=== PATIENT | male | born 1980 ===

== ENCOUNTER 2017-01-19 08:57 | Observation (INO) | payer MEDICAID ==
[~2017-01-19 08:57] MED LIST: DEXAMETHASONE 10 MG/ML VIAL IVP ONE; ceFAZolin 2 GM/DEXTROSE 100 ML IV ONE
[2017-01-19] MEDS ORDERED: LR 1,000 ML IV ONE (09:30)
[2017-01-19] MEDS ORDERED: fentaNYL 100 MCG/2 ML INJ ONE ×3 (10:02→12:48)
[2017-01-19] MEDS ORDERED: PROPOFOL 200 MG/20 ML VIAL ONE (10:02)
[2017-01-19] MEDS ORDERED: CEFAZOLIN 2 GM/DEXTROSE/100 ML BAG IV ONE (10:03)
--- NOTE | 2017-01-19 10:35 | PDHPUP ---
History & Physical Update H&P update statement: This history and physical update is based on an assessment of the patient which was completed after admission or registration (within 24 hours), but prior to the surgery/procedure. H&P update: H&P reviewed & patient examined, no change in patient's condition since H&P completed ([id number])
[2017-01-19] MEDS ORDERED: DEXAMETHASONE 10 MG/ML VIAL IVP ONE (10:45)
[2017-01-19] MEDS ORDERED: MIDAZOLAM 2 MG/2 ML VIAL IVP ONE (10:52)
--- NOTE | 2017-01-19 10:53 | PDANEPAE ---
ANE History of Present Illness Patient presents for Tonsillectomy ANE Past Medical History - Cardiovascular History Hx Hypertension: No Hx Arrhythmias: No Hx Chest Pain: No Hx Coronary Artery / Peripheral Vascular Disease: No Hx CHF / Valvular Disease: No Hx Palpitations: No - Pulmonary History Hx COPD: No Hx Asthma/Reactive Airway Disease: No Hx Recent Upper Respiratory Infection: No Hx Oxygen in Use at Home: No - Neurologic History Hx Cerebrovascular Accident: No Hx Seizures: No Hx Dementia: No - Endocrine History Hx Diabetes: No - Renal History Hx Renal Disorders: No - Liver History Hx Hepatic Disorders: No - Neurological & Psychiatric Hx Hx Neurological and Psychiatric Disorders: No - Cancer History Hx Cancer: No - Congenital Disorder History Hx Congenital Disorders: No - GI History Hx Gastrointestinal Disorders: No - Chronic Pain History Chronic Pain: No ANE Review of Systems - Exercise capacity Exercise capacity: >=4 METS METS (RN): 4 METS ANE Patient History - Allergies Allergies/Adverse Reactions: No Allergies Allergy (Verified 01/04/17 09:31) - Home Medications Home Medications: Antifungal Cream 01/14/17 [Last Taken 01/18/17 20:00] Azithromycin 01/14/17 [Last Taken 1 Week Ago] Fluconazole 01/14/17 [Last Taken Unknown] - NPO status NPO Since - Liquids (Date): 01/18/17 NPO Since - Liquids (Time): 00:00 NPO Since - Solids (Date): 01/18/17 NPO Since - Solids (Time): 00:00 - Smoking Hx Smoking Status: Former smoker - Family Anes Hx Family Hx Anesthesia Complications: none ANE Labs/Vital Signs - Vital Signs Blood Pressure: 133/86 Heart Rate: 52 Respiratory Rate: 12 O2 Sat (%): 94 Height: 180.34 cm Weight: 101.605 kg ANE Physical Exam - Airway Neck exam: FROM Mallampati Score: Class 1 Mouth exam: normal dental/mouth exam (Missing lower left incisor) - Pulmonary Pulmonary: no respiratory distress - Cardiovascular Cardiovascular: regular rate and rhythym - ASA Status ASA Status: II ANE Anesthesia Plan Anesthesia Plan: general endotracheal anesthesia
[2017-01-19] MEDS ORDERED: MIDAZOLAM 2 MG/2 ML VIAL ONE (10:54)
[2017-01-19] MEDS ORDERED: SUCCINYLCHOLINE CHLORIDE*ANESTHESIA ONLY*200 MG/10 ML SYR IVP ONE (10:55)
[2017-01-19] MEDS ORDERED: ceFAZolin 2 GM/DEXTROSE 100 ML IV ONE (11:00)
[2017-01-19] MEDS ORDERED: ROCURONIUM 50 MG/5 ML VIAL ONE ×2 (11:11→11:49)
[2017-01-19] MEDS ORDERED: ATROPINE SULFATE 1 MG/ML VIAL ONE (11:15)
[2017-01-19] MEDS ORDERED: DEXAMETHASONE 4 MG/ML VIAL ONE (11:16)
[2017-01-19] MEDS ORDERED: SUGAMMADEX SODIUM 200 MG/2 ML VIAL IVP ONE (11:16)
[2017-01-19] MEDS ORDERED: fentaNYL 100 MCG/2 ML INJ IVP PRN (11:23)
[2017-01-19] MEDS ORDERED: NALOXONE HCL 0.4 MG/ML INJ IVP PRN (11:23)
[2017-01-19] MEDS ORDERED: ONDANSETRON 4 MG/2 ML VIAL IVP PRN (11:23)
--- NOTE | 2017-01-19 12:23 | POSTOPPROG ---
Post Op Note Date of Operation: 01/19/17 Surgeon: Jacque Miranda Pre-op Diagnosis: tonsillar hypertrophy, snoring, chronic tonsillitis Post-op Diagnosis: same Procedure: tonsillectomy Findings: 4+ tonsils, cryptic Inf/Abcess present in the surg proc area at time of surgery?: No Depth: Superfical (Skin SQ) EBL: 50-100 Total fluids administered: 1 liter Specimen(s): bilateral palatine tonsils
--- NOTE | 2017-01-19 13:24 | POSTANESTH ---
Post Anesthetic Evaluation Cardiovascular Status: Normal, Stable Respiratory Status: Normal, Stable Level of Consciousness/Mental Status: Can Participate in Eval Pain Control: Adequate, Prn Tx Ordered Nausea/Vomiting Control: Adequate, Prn Tx Ordered Complications Possibly Related to Anesthesia: None Noted
[2017-01-19] MEDS: HYDROCOD/APAP 7.5/325 IN 15ML UDCUP PO PRN (13:49)
[2017-01-19] MEDS: D5W LR 1,000 ML IV SCH (14:04)
[2017-01-20] MEDS: D5W LR 1,000 ML IV SCH (04:30)
--- NOTE | 2017-01-20 06:03 | GOP ---
[f rep st] OPERATIVE REPORT DATE OF OPERATION: 01/19/2017 SURGEON: Jacque Miranda MD ANESTHESIA: General endotracheal. PREOPERATIVE DIAGNOSIS: 1. Tonsillar hypertrophy. 2. Chronic tonsillitis. POSTOPERATIVE DIAGNOSIS: 1. Tonsillar hypertrophy. 2. Chronic tonsillitis. PROCEDURE PERFORMED: Tonsillectomy. FINDINGS: SPECIMENS: Bilateral palatine tonsils as separate specimens. ESTIMATED BLOOD LOSS: Less than 100 cc. INDICATIONS: The patient;is a 36-year-old male with heroic snoring, chronic tonsil pain, and frequent tonsillar infections. He requests a tonsillectomy. Risks, benefits, and alternatives of the above procedure were discussed and he decided to proceed forward. DESCRIPTION OF PROCEDURE: The patient was met in preoperative holding. Informed consent was confirmed. After the patient was brought to the operating room, he underwent induction of general anesthesia via endotracheal tube with a [place]-Scope. He was rotated 90 degrees to the operating surgeon, positioned with gentle neck extension on a shoulder roll, and positioned, prepped and draped in the standard fashion. A second time-out was performed. He was suspended using a McIvor mouth gag from the [place] stand. He had 4+ tonsils. The right tonsils were noted around a capsule. This was quite inflamed throughout. There was a large, bleeding vessel in the mid tonsillar fossa that instead of monopolar cautery, I opted to [id number] suture this. The remaining minor bleeders were then cauterized using the suction monopolar cautery. I then removed the left tonsil in the same fashion. There were no larger vessels noted, so hemostasis was simply achieved with the suction monopolar cautery. His mouth was copiously irrigated with sterile saline, and he was suctioned free of any excess blood and saline. He was taken off the suspension, and the mouth gag was removed. He was turned back to Anesthesia for wake up. At the end of the procedure, all sponge, needle, and instrument counts correct. I personally performed all portions of the case. FLUIDS: 1 L of crystalloid. /[id number]/MODL MTDD
[2017-01-20 07:51] VITALS: BP 117/70; PULSE 66; RESP 18; TEMP 98.4; O2SAT 97
[2017-01-20] MEDS: HYDROCOD/APAP 7.5/325 IN 15ML UDCUP PO PRN (08:14)
--- NOTE | 2017-01-20 12:24 | GDS ---
[f rep st] DISCHARGE SUMMARY STATUS: 23 hour observation. Discharge in good condition. ADMISSION DIAGNOSIS: Status post tonsillectomy with likely obstructive sleep apnea. HOSPITAL COURSE: Patient underwent tonsillectomy on 01/19/2017. He was monitored overnight. There were no events. He did drift down to the low 90s. That improved with nasal cannula O2 suggestive of persistent sleep apnea, which will be worked up as an outpatient. ALLERGIES: No known drug allergies. DISCHARGE MEDICATIONS: Patient already has his liquid oxycodone and anti-nausea medication from his preoperative visit at home. Otherwise, resume all normal home medications. FOLLOWUP: 4 weeks in the office. /[id number]/MODL
== END 2017-01-20 08:41 | disposition home or self-care (01) ==
LOC: F3E 08:57
PROVIDERS: ADMIT Otolaryngology; ATTEND Otolaryngology
PROC: 0CTPXZZ Resection of Tonsils, External Approach (ICD-10-PCS; principal; 2017-01-19 11:15)
DX: J35.01 Chronic tonsillitis (principal); J35.1 Hypertrophy of tonsils
CPT/HCPCS: 42826; G0378; J0330; J0461; J0690; J1100; J2250; J2704; J3010

== ENCOUNTER 2018-06-01 15:08 | Emergency (ER) | payer SELFPAY ==
[2018-06-01] MEDS ORDERED: PROPARACAINE 0.5% 15 ML OPHT DROP OP ONE (16:29)
[2018-06-01] MEDS ORDERED: FLUORESCEIN SODIUM 1 MG STRIP OP ONE (16:29)
--- NOTE | 2018-06-01 16:41 | EDPHY ---
H & P Time Seen by Provider: 06/01/18 16:23 HPI/ROS: CHIEF COMPLAINT: Bilateral eye pain x5 days HISTORY OF PRESENT ILLNESS: 37-year-old immunocompetent male seen by his PCP the today for evaluation of 5 days new onset lesions in his left lower abdomen region followed dermatomal distribution, diagnosed with zoster, given prescription for acyclovir. 5 days ago he also noticed bilateral periorbital pain not reproducible with ocular movements, mild nonprogressive non thunderclap headache, no facial lesions, no photophobia, no intraoral or intranasal lesions, no ear complaints PRIMARY CARE PROVIDER: Juan REVIEW OF SYSTEMS: 10 systems reviewed and negative with the exception of the elements mentioned in the history of present illness PAST MEDICAL & SURGICAL HISTORY: No pertinent medical or surgical history . Immunocompetent SOCIAL HISTORY: Works as a solid waste truck driver PHYSICAL EXAM (Prior to examination, patient consented to physical exam, hands were washed and my usual and customary physical exam procedures followed) 1) GENERAL: Well-developed, well-nourished, alert and oriented. Appears to be in no acute distress. Smiling, shakes my hand appears well 2) HEAD: Normocephalic, atraumatic 3) ENT: Bilaterally no evidence of otitis media otitis externa, no lesions, no evidence of Robert Simon syndrome OCULAR EXAM: Visual Acuity: OD: 20/25, OS: 20/25, OU: 20/25 Pupils:equal round and reactive to light EOMI Lids: no edema or swelling, upper and lower lids were everted and no foreign bodies were visualized, no areas of increased fluorescein uptake. Skin: no proptosis, no periorbital erythema or swelling, no vesicles, no pain with extraocular movements. Conjunctivae: not injected, no discharge, negative Joseph test. Cornea: exam with fluorescein shows no areas of increased uptake, no abrasion, no dendritic appearance, no ulceration. No facial lesions. Negative Best sign. Anterior chamber:normal, no hyphema or hypopyon. Tonometric measurement right eye: 11, left eye: 12 4) NECK: Full range of motion, no meningeal signs. 5) LUNGS: Clear auscultation bilaterally, no wheezes, no rhonchi, no retractions. 6) HEART: Regular rate and rhythm, no murmur, no heave, no gallop. 7) ABDOMEN: Granulating vesicular lesions left lower abdomen extending to his back following a dermatomal distribution. No other lesions seen No guarding, no rebound, no focal tenderness, negative McBurney's, negative Leal's, negative Rovsing's, negative peritoneal sign, 8) MUSCULOSKELETAL: Moving all extremities, no focal areas of tenderness, no obvious trauma. No peripheral edema or discoloration. 9) BACK: No CVA tenderness, no midline vertebral tenderness, no fluctuance, no step-off, no obvious trauma, no visual or palpable abnormality. 10) SKIN: No rash, no petechiae. 11) Psychiatric: Patient is oriented X 3, there is no agitation. DIFFERENTIAL DIAGNOSIS: In no particular order including but not limited to Robert Simon, zoster ophthalmicus, corneal abrasion Smoking Status: Former smoker Constitutional: Initial Vital Signs Temperature (C) 37.3 C 06/01/18 15:21 Heart Rate 76 06/01/18 15:21 Respiratory Rate 16 06/01/18 15:21 Blood Pressure 108/83 H 06/01/18 15:21 O2 Sat (%) 92 06/01/18 15:21 O2 Delivery Mode Room Air Allergies/Adverse Reactions: No Allergies Allergy (Verified 06/01/18 15:21) Home Medications: Medication Instructions Recorded NK [No Known Home Meds] 01/19/17 MDM/Departure - MDM Medications Given: Discontinued Medications Fluorescein Sodium (Bioglo) 2 mg OP EDNOW ONE Stop: 06/01/18 16:30 Last Admin: 06/01/18 16:41 Dose: 2 mg Proparacaine HCl (Alcaine 0.5%) 1 drops OP EDNOW ONE Stop: 06/01/18 16:30 Last Admin: 06/01/18 16:39 Dose: 4 drops ED Course/Re-evaluation: This patient appears well. He was sent to the ER for evaluation of possible zoster ophthalmicus. On exam he has no evidence of zoster ophthalmicus, no facial lesions, no evidence of [place] Simon syndrome, negative Best sign. In addition he has no evidence of periorbital or orbital cellulitis. He has a nonfocal neurologic exam with no complaints of diffuse headache. At this time I do not think that emergent ophthalmological consultation indicated, I do not think that imaging of the head or brain are indicated. I recommend he take his acyclovir as directed. I saw this patient independently based on established practice protocols. Care of patient under supervision of primary supervising physician Dr Bajwa with whom I discussed case. - Depart Disposition: Home, Routine, Self-Care Clinical Impression: Zoster Qualifiers: Herpes zoster complications: without complications Qualified Code(s): B02.9 - Zoster without complications Condition: Good Instructions: Shingles (ED) Additional Instructions: Return to the ER if you develop difficulty walking, progressive headaches, any other symptoms that concern you Referrals: Son Martinez MD [Primary Care Provider] - 2-3 days, call for appt. Jigna Earl MD [Medical Doctor] - 1 day without fail (Dr Earl is an eye doctor)
[2018-06-01 16:48] VITALS: BP 145/84
== END 2018-06-01 16:48 | disposition home or self-care (01) ==
DX: H57.13 Ocular pain, bilateral (principal); B02.9 Zoster without complications; Z79.2 Long term (current) use of antibiotics